=== PATIENT | male | born 1975 | race Caucasian/White ===

== ENCOUNTER → 2024-03-27 06:28 | Day surgery (SDC) | payer BC, SELFPAY | LOC: GI 06:28 | PROVIDERS: ATTENDING PHYSICIAN Internal Medicine Gastroenterology | DX: K51.20 Ulcerative (chronic) proctitis without complications (principal); K52.9 Noninfective gastroenteritis and colitis, unspecified; R19.4 Change in bowel habit; Z87.19 Personal history of other diseases of the digestive system | CPT/HCPCS: 45331; 88305; 88342 ==